=== PATIENT | male | born 1940 | race American Indian/Alaskan Native ===

== ENCOUNTER 2018-05-28 12:05 | Emergency (ER) | payer OTHER, BC ==
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
[2018-05-28] MEDS ORDERED: MOTRIN PO ONE (17:32)
[2018-05-28 17:40] VITALS: BP 166/87
== END 2018-05-28 17:50 | disposition home or self-care (01) ==
LOC: ED 12:05
DX: S39.012A Strain of muscle, fascia and tendon of lower back, initial encounter (principal); V49.49XA Driver injured in collision with other motor vehicles in traffic accident, initial encounter; Y93.89 Activity, other specified; Y92.89 Other specified places as the place of occurrence of the external cause; Y99.8 Other external cause status
CPT/HCPCS: 71045; 72040